=== PATIENT | female | born 1995 | race Caucasian/White ===

== ENCOUNTER 2018-06-28 12:37 | Emergency (ER) | payer OTHER ==
--- NOTE | 2018-06-28 13:46 | ER Document Report ---
ED Medical Screen (RME) - General Chief Complaint: OB Problem (<20wks) Stated Complaint: ABDOMINAL PAIN/VAGINAL DISCHARGE Time Seen by Provider: 06/28/18 13:31 Mode of Arrival: Ambulatory Information source: Patient Notes: Patient is an otherwise healthy 23-year-old female who presents the emergency department with complaints of vaginal bleeding. Patient reports that she is 9 weeks . She states the bleeding started last week after she had a Pap smear. Patient is a . She denies passage of any clots. She does report low abdominal cramping. 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 Patient does have a history of labor, incompetent cervix and miscarriage in the past. Exam: Patient alert, oriented x4 with no acute distress noted. I have greeted and performed a rapid initial assessment of this patient. A comprehensive ED assessment and evaluation of the patient, analysis of test results and completion of the medical decision making process will be conducted by additional ED providers. Dictation of this chart was performed using voice recognition software; therefore, there may be some unintended grammatical errors. TRAVEL OUTSIDE OF THE [place] IN LAST 30 DAYS: No - Related Data Allergies/Adverse Reactions: Penicillins Allergy (Verified 06/28/18 12:42) Past Medical History - Social History Chew tobacco use (# tins/day): No Frequency of alcohol use: None Drug Abuse: None Renal/ Medical History: Denies: Hx Peritoneal Dialysis Physical Exam - Vital signs Vitals: Temp Pulse Resp BP Pulse Ox 98.6 F 79 16 151/78 H 99 06/28/18 12:57 06/28/18 12:57 06/28/18 12:57 06/28/18 12:57 06/28/18 12:57 Course - Vital Signs Vital signs: Temp Pulse Resp BP Pulse Ox 98.6 F 79 16 151/78 H 99 06/28/18 12:57 06/28/18 12:57 06/28/18 12:57 06/28/18 12:57 06/28/18 12:57
[2018-06-28 14:02] LABS: APPEARANCE,URINE CLEAR; BILIRUBIN,URINE NEGATIVE (NEGATIVE); COLOR,URINE STRAW; GLUCOSE, URINE NEGATIVE (NEGATIVE); KETONES,URINE NEGATIVE (NEGATIVE); LEUKOCYTE ESTERASE,URINE NEGATIVE (NEGATIVE); NITRITE,URINE NEGATIVE (NEGATIVE); PROTEIN,URINE NEGATIVE (NEGATIVE); URINE SPECIFIC GRAVITY 1.005; UROBILINOGEN,URINE NEGATIVE mg/dL (<2.0)
[2018-06-28 14:27] LABS: ABSOLUTE EOSINOPHILS # (AUTO) 0.2 10^3/uL (0.0-0.6); ABSOLUTE MONOCYTES (AUTO) 0.8 10^3/uL (0.1-1.4); ABSOLUTE NEUT (AUTO) 10.5 10^3/uL (1.7-8.2); BASOPHILS % (AUTO) 0.3 % (0-2); EOSINOPHILS % (AUTO) 1.3 % (0-6); HEMATOCRIT 42.7 % (36.0-47.0); HEMOGLOBIN 14.3 g/dL (12.0-15.5); LYMPHOCYTES % (AUTO) 20.7 % (13-45); MEAN CORPUSCULAR HEMOGLOBIN 29.8 pg (27.0-33.4); MEAN CORPUSCULAR HGB CONC 33.4 g/dL (32.0-36.0); MEAN CORPUSCULAR VOLUME 89 fl (80-97); MONOCYTES % (AUTO) 5.5 % (3-13); PLATELET COUNT 236 10^3/uL (150-450); SEGMENTED NEUTROPHILS % (AUTO) 72.2 % (42-78); TOTAL CELLS COUNTED % (AUTO) 100 %; WHITE BLOOD COUNT 14.6 10^3/uL (4.0-10.5)
--- NOTE | 2018-06-28 16:43 | RADIOLOGY REPORT (SQ) ---
EXAM DESCRIPTION: U/S OB TRANSVAGINAL W/O DOP COMPLETED DATE/TIME: 06/28/2018 4:16 pm REASON FOR STUDY: 9 wks , vaginal bleeding COMPARISON: None. TECHNIQUE: Endovaginal static and realtime grayscale images acquired of the pelvis. Additional selec romelia spectral and color Doppler images recorded. All images stored on PACs. bHCG: Not available CLINICAL DATES: Menses 05/14/2018 LIMITATIONS: None. FINDINGS: FETUS: Single Living intrauterine . ULTRASOUND EGA: 9 weeks 6 days ULTRASOUND DAYAMI: 01/25/2019 EFW: Not applicable less than 20 weeks. CRL: 3 cm in length FHR: 180 beats per minute. SURVEY: Too early to assess. AMNIOTIC FLUID: Adequate amount. PLACENTA: Not yet developed due to early gestation. SUBCHORIONIC BLEED: No SIZE OF BLEED: Not applicable. UTERUS: No masses. No anomalies. Uterus is 12 x 9.5 x 8 cm in size CERVICAL LENGTH: 3.2 cm in length Closed. RIGHT ADNEXA: Right ovary not visualized due to adnexal bowel gas No adnexal free fluid. No adnexal masses. LEFT ADNEXA: Normal ovary with normal vascular flow. Left ovary 3.8 x 2.5 x 1.7 cm in size No adnexal free fluid. No adnexal masses. FREE FLUID: None. OTHER: No other significant finding. IMPRESSION: LIVING INTRAUTERINE . EGA 9 weeks 6 days, estimated due date 01/25/2019. No subchorionic hemorrhage. Trimester of : First - 0 to 13 weeks. TECHNICAL DOCUMENTATION: JOB ID: [id number]- All Rights Reserved rev Reading location - IP/workstation name: [email or web address] [email or web address] [facility]IST[facility]-
--- NOTE | 2018-06-28 18:00 | ER Document Report ---
ED General - General Chief Complaint: OB Problem (<20wks) Stated Complaint: ABDOMINAL PAIN/VAGINAL DISCHARGE Time Seen by Provider: 06/28/18 13:31 Mode of Arrival: Ambulatory Notes: 23-year-old female who presents the emergency department with complaints of vaginal bleeding. Patient reports that she is 9 weeks . She states the bleeding started last week after she had a Pap smear. She denies passage of any clots. She does report low abdominal cramping. 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 Patient does have a history of labor, incompetent cervix and miscarriage in the past. She denies fever, chills, nausea, vomiting, diarrhea, abdominal pain, urinary symptoms. She states that the discharge is "brownish" and very scant and it is on her underwear, just a little bit every day. No other complaints. TRAVEL OUTSIDE OF THE [place] IN LAST 30 DAYS: No - Related Data Allergies/Adverse Reactions: Penicillins Allergy (Verified 06/28/18 12:42) Past Medical History - General Information source: Patient - Social History Smoking Status: Never Smoker Chew tobacco use (# tins/day): No Frequency of alcohol use: None Drug Abuse: None Family History: None Patient has suicidal ideation: No Patient has homicidal ideation: No Renal/ Medical History: Denies: Hx Peritoneal Dialysis Review of Systems - Review of Systems Constitutional: See HPI EENT: No symptoms reported Cardiovascular: See HPI Respiratory: See HPI Gastrointestinal: See HPI Genitourinary: See HPI Female Genitourinary: See HPI Musculoskeletal: No symptoms reported Skin: No symptoms reported Hematologic/Lymphatic: No symptoms reported Neurological/Psychological: No symptoms reported Physical Exam - Vital signs Vitals: Temp Pulse Resp BP Pulse Ox 98.6 F 79 16 151/78 H 99 06/28/18 12:57 06/28/18 12:57 06/28/18 12:57 06/28/18 12:57 06/28/18 12:57 - Notes Notes: PHYSICAL EXAMINATION: Reviewed vital signs and charting by RN GENERAL: Alert, interacts well. No acute distress. HEAD: Normocephalic, atraumatic. EYES: Pupils equal and round. Extraocular movements intact. ENT: Oral mucosa moist NECK: Full range of motion. Supple. Trachea midline. LUNGS: Clear to auscultation bilaterally, no wheezes, rales, or rhonchi. No respiratory distress. HEART: Regular rate and rhythm. No murmur ABDOMEN: soft, non-tender. Non-distended. Bowel sounds present. no McBurney's point tenderness, no Joseph sign. EXTREMITIES: Moves all 4 extremities spontaneously. No edema, No cyanosis. Normal distal neurovascular exam BACK: No CVAT NEUROLOGIC: Oriented and appropriate. Normal speech. PSYCH: Normal affect, normal mood. SKIN: Warm, dry, normal turgor. No rashes or lesions noted. Course - Re-evaluation Re-evalutation: 06/28/18 17:58 Well-appearing. Transvaginal ultrasound shows a live intrauterine with heartbeat 180 bpm and no subchorionic bleed. Urinalysis negative for UTI. Will give patient referral to [facility]. Stable for discharge. 06/28/18 17:58 - Vital Signs Vital signs: Temp Pulse Resp BP Pulse Ox 98.6 F 79 16 151/78 H 99 06/28/18 12:57 06/28/18 12:57 06/28/18 12:57 06/28/18 12:57 06/28/18 12:57 - Laboratory Result Diagrams: 06/28/18 14:07 Laboratory results interpreted by me: 06/28/18 06/28/18 14:07 14:07 WBC 14.6 H Absolute Neutrophils 10.5 H Beta HCG, Quant 95110.00 H Discharge - Discharge Clinical Impression: Vaginal bleeding affecting early Condition: Good Disposition: HOME, SELF-CARE Additional Instructions: Your ultrasound today shows a living intrauterine . Please call [facility] first thing in the morning so you can follow closely with them and establish G[employer] care. Please return if you develop severe abdominal pain, bleeding that goes through more than 2 pads for more than 2 hours, pass out, or have any other symptoms that are concerning to you. Please follow-up closely with your OBGYN regarding todays visit. Referrals: YG PEREZ MD [ACTIVE STAFF] - Follow up tomorrow
[2018-06-28 18:22] VITALS: BP 140/76
== END 2018-06-28 18:23 | disposition home or self-care (01) ==
LOC: ER 12:37
DX: O20.9 Hemorrhage in early pregnancy, unspecified (principal); Z3A.09 9 weeks gestation of pregnancy; Z88.0 Allergy status to penicillin
CPT/HCPCS: 36415; 76817; 81001; 84702; 85025; 86850; 86900; 86901; 99284